=== PATIENT | female | born 1990 | race Two or more races ===

== ENCOUNTER 2020-03-27 07:50 | Emergency (ER) | payer MEDICAID, OTHER ==
[~2020-03-27] VITALS: Ht 162.6 cm; Wt 92.8 kg
[2020-03-27] MEDS ORDERED: ACETAMINOPHEN 500 MG TABLET ONE (09:52)
[2020-03-27] MEDS ORDERED: ACETAMINOPHEN 500 MG TABLET PO ONE (10:00)
--- NOTE | 2020-03-27 10:56 | NUR ---
PT TO ROOM FROM LOBBY AT THIS TIME.
[2020-03-27 11:03] VITALS: BP 115/69
--- NOTE | 2020-03-27 11:08 | NUR ---
CXR IN ROOM.
--- NOTE | 2020-03-27 11:34 | NUR ---
TELEPHONE CALL TO [facility] REGARDING CXR MARKED COMPLETE BUT NOT POPULATING IN EMR. STATES THEY WILL WORK ON IT.
--- NOTE | 2020-03-27 11:53 | NUR ---
ALL TESTS RESULTED. PT IS UP FOR RECHECK.
== END 2020-03-27 12:04 | disposition home or self-care (01) ==
LOC: ED 09:32
DX: U07.1 COVID-19 (principal)
CPT/HCPCS: 36415; 71045; 87635; 99284